=== PATIENT | male | born 1990 | race Caucasian/White ===

== ENCOUNTER 2019-08-21 20:10 | Emergency (ER) | payer OTHER ==
[~2019-08-21] VITALS: Ht 182.9 cm; Wt 158.8 kg
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
[2019-08-21 21:32] LABS: ABSOLUTE NEUTROPHILS 8.3 thou/uL (1.4-8.2); BASOPHILS 0.8 % (0.0-2.0); EOSINOPHILS 1.5 % (0.0-3.0); HEMATOCRIT 41.1 % (42.0-52.0); HEMOGLOBIN 13.6 gm/dL (14.0-18.0); LYMPHOCYTES 23.6 % (24.0-44.0); MCH 31.1 pg (26.0-34.0); MCHC 33.1 g/dL (28.0-37.0); MCV 94.2 fL (80.0-100.0); PLATELET COUNT 244 thou/uL (150-400); POLYS 68.1 % (36.0-66.0); RBC 4.36 mil/uL (4.50-6.00); RDW 13.4 % (10.5-14.5); WBC 12.3 thou/uL (4.0-11.0)
[2019-08-21 21:39] LABS: ANION GAP 9 mmol/L (7-16); BUN 10 mg/dL (7-18); CALCIUM 9.8 mg/dL (8.5-10.1); CHLORIDE 105 mmol/L (98-107); CO2 28 mmol/L (21-32); CREATININE 0.6 mg/dL (0.7-1.3); GLUCOSE 96 mg/dL (74-106); POTASSIUM 3.8 mmol/L (3.5-5.1); SODIUM 142 mmol/L (136-145)
[2019-08-21 21:50] LABS: ALBUMIN 3.7 g/dL (3.4-5.0); SGOT 12 U/L (15-37); SGPT 17 U/L (30-65); TOTAL BILIRUBIN 0.2 mg/dL (<0.1-1.0); TOTAL PROTEIN 7.7 g/dL (6.4-8.2); TROPONIN-I <0.06 ng/mL (<0.06)
[2019-08-21 23:12] VITALS: BP 109/57
--- NOTE | 2019-08-22 15:11 | EKG ---
[place] [address] [facility] [place] [address] ELECTROCARDIOGRAM REPORT Name: DOMINICK HARRIS Room #: DEP David#: [id number] Admission: 08/21/19 Attend Phys: Discharge: 08/21/19 Date of : [birth year] Report #: [id number] THIS REPORT FOR: //name// [facility] ED Test Date: 2019-08-21 Test Time: 21:13:30 Pat Name: DOMINICK HARRIS Department: Room: Gender: M [employer]: ELLY : 1990 Requested By: Moni Ulloa Order Number: [id number] MD: Valentino Castellanos Measurements Intervals [place] Rate: 65 P: 14 VT: 175 QRS: 0 QRSD: 100 T: 2 QT: 384 QTc: 400 Interpretive Statements Sinus rhythm Low voltage, precordial leads Borderline T abnormalities, inferior leads No previous ECG available for comparison Electronically Signed On 08-22-2019 15:11:30 CDT by Valentino Castellanos [email or web address] <ELECTRONICALLY SIGNED> By: Valentino Castellanos MD 08/22/19 1511 12 12 Valentino Castellanos MD /NICKI
== END 2019-08-21 23:13 | disposition home or self-care (01) ==
LOC: EDBD 20:10 → ER 20:10
PROVIDERS: Physician Assistant
DX: I95.9 Hypotension, unspecified (principal); G89.18 Other acute postprocedural pain; D64.9 Anemia, unspecified; R42 Dizziness and giddiness